=== PATIENT | male | born 1955 | race Caucasian/White ===

== ENCOUNTER 2016-08-27 13:01 | Day surgery (SDC) | payer MEDICAID ==
[2016-08-26 12:43] VITALS: BMI 35.6
[~2016-08-27 13:01] MED LIST: Sodium Chloride 0.9% 1,000 ML IV SCH
[2016-08-27] MEDS ORDERED: Propofol 10 mg/ml Inj (20 ML) ONE (13:42)
[2016-08-27] MEDS ORDERED: Sodium Chloride 0.9% 1,000 ML IV SCH (15:45)
[2016-08-27 16:50] VITALS: RESP 18; TEMP 97.5
[2016-08-27 17:42] VITALS: BP 124/76; PULSE 75; O2SAT 98
== END 2016-08-27 17:20 | disposition home or self-care (01) ==
LOC: ENDO 13:01
PROVIDERS: ATTEND Internal Medicine
DX: K74.60 Unspecified cirrhosis of liver (principal); K22.9 Disease of esophagus, unspecified; I85.00 Esophageal varices without bleeding; K29.70 Gastritis, unspecified, without bleeding; Z12.13 Encounter for screening for malignant neoplasm of small intestine; D12.2 Benign neoplasm of ascending colon; D12.0 Benign neoplasm of cecum; D12.3 Benign neoplasm of transverse colon
CPT/HCPCS: 43239; 45380; 82948; 88305; 88342; J2001; J2704; J3010; J7040

== ENCOUNTER → 2016-11-24 | Day surgery (SDC) | payer MEDICAID ==
[~2016-11-24] MED LIST changes: +Propofol 10 mg/ml Inj (20 ML) ONE
[2016-11-24 10:48] VITALS: BMI 35.6
[2016-11-24 12:31] VITALS: BP 114/78; PULSE 63; RESP 16; TEMP 98.3; O2SAT 98
== END | disposition home or self-care (01) ==
LOC: ENDO 10:12
PROVIDERS: ATTEND Internal Medicine
DX: K74.60 Unspecified cirrhosis of liver (principal); I85.10 Secondary esophageal varices without bleeding; K76.6 Portal hypertension; B18.2 Chronic viral hepatitis C; K31.89 Other diseases of stomach and duodenum; K29.70 Gastritis, unspecified, without bleeding
CPT/HCPCS: 43239; 82948; 88305; 88342; J2704; J3010; J7040 ×2